=== PATIENT | male | born 1980 | race Asian ===

== ENCOUNTER 2017-05-17 18:28 | Emergency (ER) | payer SELFPAY ==
[~2017-05-17] VITALS: Ht 175.3 cm; Wt 68.5 kg
[2017-05-17 18:44] VITALS: Ht 175.3 cm; Wt 68.5 kg
[2017-05-17 20:04] VITALS: BP 112/62
== END 2017-05-17 20:04 | disposition home or self-care (01) ==
LOC: ED 18:28
DX: S61.250A Open bite of right index finger without damage to nail, initial encounter (principal); W53.21XA Bitten by squirrel, initial encounter; Y93.89 Activity, other specified; Y99.8 Other external cause status; Y92.89 Other specified places as the place of occurrence of the external cause
CPT/HCPCS: 90715